=== PATIENT | female | born 1995 | race American Indian/Alaskan Native ===

== ENCOUNTER 2017-08-03 13:14 | Emergency (ER) | payer MEDICAID ==
[2017-08-03 14:01] LABS: Basophils % (Auto) 0.6 % (0.0-1.8); Eosinophils % (Auto) 1.4 % (0.0-4.3); Hematocrit 31.3 % (30.3-42.9); Hemoglobin 9.9 gm/dl (10.1-14.3); Mean Corpuscular HGB Conc 32 % (30-34); Mean Corpuscular Hemoglobin 27 pg (28-32); Mean Corpuscular Volume 84 fl (79-97); Platelet Count 328 K/mm3 (140-440); Red Blood Count 3.74 M/mm3 (3.65-5.03); Red Cell Distribution Width 18.5 % (13.2-15.2); White Blood Count 6.5 K/mm3 (4.5-11.0)
[2017-08-03 15:38] LABS: Bacteria,Urine 1+ /HPF (Negative); Bilirubin,Urine NEG (Negative); Blood,Urine NEG (Negative); Ketones,Urine NEG (Negative); Leukocyte Esterase,Urine NEG (Negative); Nitrite,Urine NEG (Negative); Protein,Urine <15 mg/dL mg/dL (Negative); Urobilinogen,Urine < 2.0 mg/dL (<2.0)
--- NOTE | 2017-08-03 17:33 | Ultrasound Report ---
FINAL REPORT EXAM: US OB \T\lt; = 14 WEEKS FETUS HISTORY: vaginal bleeding . LMP 06/11/2017 with estimated age 7 weeks 4 days and EDC 03/18/2018[place] [address] TECHNIQUE: Ultrasound of the pelvis using transabdominal and transvaginal imaging PRIORS: None. FINDINGS: Uterus: Uterus is enlarged in size and normal and homogeneous in echogenicity without focal fibroid formation. The uterus measures 11.0 x 6.5 x 7.7 cm in size. There is a single early viable intrauterine gestation noted. Intrauterine gestation: There is a single intrauterine gestation identified with both a pole and yolk sac. heart rate is monitored at 146 BPM using M-mode doppler. [place]-rump length measurement of 1.1 cm corresponds to estimated age 7 weeks 2 days with EDC 03/20/2018. There is a small to moderate subchorionic hemorrhage along the caudal portion of the gestational sac measuring 1.5 x 0.8 x 1.8 cm. Ovaries: Both ovaries appear prominent in size and normal in echogenicity with normal blood flow bilaterally. The right ovary measures 3.7 x 2.1 x 2.3 cm and the left ovary measures 3.7 x 2.3 x 3.9 cm in size. In the right ovary, there is a hypoechoic avascular complex cystic focus measuring 2.7 cm, likely the corpus luteum. Other: There is no evidence for solid adnexal mass is seen. There is no free fluid in the cul-de-sac. IMPRESSION: Single intrauterine viable with an approximate age of 7 weeks 2 days. Small moderate subchorionic hemorrhage noted along the caudal portion of the gestational sac.
--- NOTE | 2017-08-03 17:33 | Ultrasound Report ---
FINAL REPORT EXAM: US OB TRANSVAGINAL HISTORY: vaginal bleeding . LMP 06/11/2017 with estimated age 7 weeks 4 days and EDC 03/18/2018[place] [address] TECHNIQUE: Ultrasound of the pelvis using transabdominal and transvaginal imaging PRIORS: None. FINDINGS: Uterus: Uterus is enlarged in size and normal and homogeneous in echogenicity without focal fibroid formation. The uterus measures 11.0 x 6.5 x 7.7 cm in size. There is a single early viable intrauterine gestation noted. Intrauterine gestation: There is a single intrauterine gestation identified with both a pole and yolk sac. heart rate is monitored at 146 BPM using M-mode doppler. [place]-rump length measurement of 1.1 cm corresponds to estimated age 7 weeks 2 days with EDC 03/20/2018. There is a small to moderate subchorionic hemorrhage along the caudal portion of the gestational sac measuring 1.5 x 0.8 x 1.8 cm. Ovaries: Both ovaries appear prominent in size and normal in echogenicity with normal blood flow bilaterally. The right ovary measures 3.7 x 2.1 x 2.3 cm and the left ovary measures 3.7 x 2.3 x 3.9 cm in size. In the right ovary, there is a hypoechoic avascular complex cystic focus measuring 2.7 cm, likely the corpus luteum. Other: There is no evidence for solid adnexal mass is seen. There is no free fluid in the cul-de-sac. IMPRESSION: Single intrauterine viable with an approximate age of 7 weeks 2 days. Small moderate subchorionic hemorrhage noted along the caudal portion of the gestational sac.
[2017-08-03] MEDS ORDERED: TYLENOL PO ONE (17:41)
--- NOTE | 2017-08-03 17:51 | Emergency Department Report ---
HPI - General Chief Complaint: Vaginal Bleeding Time Seen by Provider: 08/03/17 17:32 - HPI HPI: This is a 22-year-old -[place] female presents to the emergency department from home with complaint of some lower abdominal and/or pelvic cramping and some vaginal bleeding that started last night, all while . The patient believes she is about 7 weeks' as she had a home test was positive, a last menstrual cycle about June 11, and the was confirmed at [facility] by urine test. She has not taken anything for her symptoms prior to presentation. With this she is . No recent travel or sick contacts at home. She denies any fever, vaginal discharge, dysuria, nausea, vomiting. ED Past Medical Hx - Past Medical History Hx Hypertension: No Hx Congestive Heart Failure: No Hx Diabetes: No Hx Deep Vein Thrombosis: No Hx Renal Disease: No Hx Sickle Cell Disease: No Hx Seizures: No Hx Asthma: No Hx COPD: No Hx HIV: No - Surgical History Hx Cholecystectomy: Yes - Social History Smoking Status: Never Smoker Substance Use Type: None - Medications Home Medications: Home Medications Medication Instructions Recorded Confirmed Last Taken Type Fluticasone [Flonase] 2 spray NS QDAY #2 bottle 10/23/15 Unknown Rx Loratadine [Claritin] 10 mg PO DAILY #30 tablet 10/23/15 Unknown Rx Prednisone [predniSONE 10 mg 10 mg PO .TAPER #1 tab.ds.pk 10/23/15 Unknown Rx (6-Day Pack, 21 Tabs)] Sulfamethoxazole/Trimethoprim 1 each PO BID #20 tablet 10/23/15 Unknown Rx [Bactrim DS TAB] ED Review of Systems ROS: Stated complaint: CRAMPS/VAGINAL BLEEDING Other details as noted in HPI Comment: All other systems reviewed and negative Constitutional: denies: chills, fever Eyes: denies: eye pain, eye discharge, vision change ENT: denies: ear pain, throat pain Respiratory: denies: cough, shortness of breath, wheezing Cardiovascular: denies: chest pain, palpitations Genitourinary: other (vaginal bleeding). denies: dysuria Musculoskeletal: denies: back pain, joint swelling, arthralgia Skin: denies: rash, lesions Neurological: denies: headache, weakness, paresthesias Physical Exam - Physical Exam Vital Signs: Vital Signs 08/03/17 13:24 Temperature 98 F Pulse Rate 74 Respiratory 20 Rate Blood Pressure 120/63 O2 Sat by Pulse 100 Oximetry Physical Exam: GENERAL: The patient is well-developed well-nourished. HENT: Normocephalic. Atraumatic. Patient has moist mucous membranes. EYES: Extraocular motions are intact. Pupils equal reactive to light bilaterally. NECK: Supple. Trachea is midline. CHEST/LUNGS: Clear to auscultation. There is no respiratory distress noted. HEART/CARDIOVASCULAR: Regular. There is no tachycardia. ABDOMEN: Abdomen is soft, nontender. No guarding or rebound tenderness. Patient has normal bowel sounds. There is no abdominal distention. SKIN: There is no rash. There is no edema. There is no diaphoresis. NEURO: The patient is awake, alert, and oriented. The patient is cooperative. The patient has no focal neurologic deficits. The patient has normal speech. MUSCULOSKELETAL: There is no tenderness or deformity. There is no limitation range of motion. There is no evidence of acute injury. ED Course Vital Signs 08/03/17 13:24 Temperature 98 F Pulse Rate 74 Respiratory 20 Rate Blood Pressure 120/63 O2 Sat by Pulse 100 Oximetry ED Medical Decision Making - Lab Data Result diagrams: 08/03/17 13:40 - Radiology Data Radiology results: report reviewed EXAM: US OB TRANSVAGINAL HISTORY: vaginal bleeding . LMP 06/11/2017 with estimated age 7 weeks 4 days and EDC 03/18/2018. [place] [address] TECHNIQUE: Ultrasound of the pelvis using transabdominal and transvaginal imaging PRIORS: None. FINDINGS: Uterus: Uterus is enlarged in size and normal and homogeneous in echogenicity without focal fibroid formation. The uterus measures 11.0 x 6.5 x 7.7 cm in size. There is a single early viable intrauterine gestation noted. Intrauterine gestation: There is a single intrauterine gestation identified with both a pole and yolk sac. heart rate is monitored at 146 BPM using M-mode doppler. [place]-rump length measurement of 1.1 cm corresponds to estimated age 7 weeks 2 days with EDC 03/20/2018. There is a small to moderate subchorionic hemorrhage along the caudal portion of the gestational sac measuring 1.5 x 0.8 x 1.8 cm. Ovaries: Both ovaries appear prominent in size and normal in echogenicity with normal blood flow bilaterally. The right ovary measures 3.7 x 2.1 x 2.3 cm and the left ovary measures 3.7 x 2.3 x 3.9 cm in size. In the right ovary, there is a hypoechoic avascular complex cystic focus measuring 2.7 cm, likely the corpus luteum. Other: There is no evidence for solid adnexal mass is seen. There is no free fluid in the cul-de-sac. IMPRESSION: Single intrauterine viable with an approximate age of 7 weeks 2 days. Small moderate subchorionic hemorrhage noted along the caudal portion of the gestational sac. Transcribed By: [facility] Dictated By: NBA NAVARRO MD Electronically Authenticated By: NBA NAVARRO MD Signed Date/Time: 08/03/17 0301 - Medical Decision Making 22-year-old female presents with some vaginal bleeding while that started last night. It is a mild amount of bleeding. Her labs are mostly unremarkable including no significant anemia. Leukocytosis or signs of infection in the blood or urine. She has a beta hCG of 13,800. Ultrasound shows a live intrauterine at 7 weeks and 1 day. With the bleeding, she will get the diagnosis of a threatened miscarriage. She is artery on vitamins and will use Tylenol for discomfort and has good follow-up with [facility] at [facility]. She will return to the ER with any worsening of her symptoms or any acute distress. Discharge instructions given in the emergency department and all questions answered. - Differential Diagnosis , threatened miscarriage, spontaneous miscarriage, fibroids Critical Care Time: No Critical care attestation.: If time is entered above; I have spent that time in minutes in the direct care of this critically ill patient, excluding procedure time. ED Disposition Clinical Impression: Threatened miscarriage Qualifiers: Weeks of gestation: less than 8 weeks Qualified Code(s): Z3A.01 - Less than 8 weeks gestation of Disposition: DC-01 TO HOME OR SELFCARE Is pt being admited?: No Condition: Good Instructions: (ED), Threatened Miscarriage (ED) Additional Instructions: Please follow up with [facility] in the next few days. Return to the emergency Department with any worsening of the vaginal bleeding or abdominal pain, or any acute distress. You should have pelvic rest meaning that there should be nothing inserted within the vagina, no sexual intercourse. You should also avoid any heavy lifting of anything greater than 5-10 pounds. He can take Tylenol every 4 hours, using weight-based dosing, as needed for discomfort. Continue with your vitamins. Referrals: [facility] [Provider Group] - 3-5 Days Time of Disposition: 17:52
[2017-08-03 18:14] VITALS: BP 120/71
== END 2017-08-03 18:14 | disposition home or self-care (01) ==
LOC: ED 13:14
DX: O20.0 Threatened abortion (principal); Z3A.01 Less than 8 weeks gestation of pregnancy
CPT/HCPCS: 36415; 76801; 76817; 81001; 84702; 85025; 86850; 86900; 86901

== ENCOUNTER 2018-01-27 19:28 | Outpatient (CLI) | payer MEDICAID ==
[2018-01-27 19:45] VITALS: BP 111/59
[2018-01-27 21:23] LABS: Bilirubin,Urine NEG (Negative); Blood,Urine NEG (Negative); Color,Urine Straw (Yellow); Protein,Urine <15 mg/dL mg/dL (Negative); RBC,Urine < 1.0 /HPF (0.0-6.0); Urobilinogen,Urine < 2.0 mg/dL (<2.0)
[2018-01-27 21:26] LABS: WBC,Urine < 1.0 /HPF (0.0-6.0)
== END 2018-01-27 22:30 | disposition home or self-care (01) ==
LOC: TRG 19:28
PROVIDERS: ATTEND Obstetrics & Gynecology
DX: O47.03 False labor before 37 completed weeks of gestation, third trimester (principal); Z3A.32 32 weeks gestation of pregnancy
CPT/HCPCS: 59025; 81001

== ENCOUNTER 2018-02-03 12:29 | Outpatient (CLI) | payer MEDICAID ==
[2018-02-03] MEDS ORDERED: MORPHINE IM ONE ×2 (13:04→14:30)
[2018-02-03 13:06] VITALS: BP 120/82
[2018-02-03] MEDS ORDERED: PHENERGAN PO ONE (13:06)
[2018-02-03] MEDS ORDERED: LACTATED RINGERS 500 ML IV ONE (13:55)
[2018-02-03] MEDS ORDERED: BRETHINE SUB-Q ONE (14:14)
[2018-02-03] MEDS ORDERED: BRETHINE ONE (14:14)
== END 2018-02-03 14:50 | disposition home or self-care (01) ==
LOC: TRG 12:29
PROVIDERS: ATTEND Obstetrics & Gynecology
DX: O47.03 False labor before 37 completed weeks of gestation, third trimester (principal); Z3A.33 33 weeks gestation of pregnancy
CPT/HCPCS: 59025; 96360; 96361; 96372; J2270; J3105; J7120; Q0169

== ENCOUNTER 2018-03-07 18:04 | Outpatient (CLI) | payer MEDICAID ==
[2018-03-07 19:22] VITALS: BP 111/56
--- NOTE | 2018-03-07 19:41 | Ultrasound Report ---
FINAL REPORT PROCEDURE: OB US LIMITED FETUS(S) TECHNIQUE: Real-time limited sonographic examination was performed for evaluation of well-being for each fetus with image documentation (1 or more fetuses). CPT 74857 HISTORY: labor COMPARISON: No prior studies are available for comparison. FINDINGS: There is a single living intrauterine gestation visualized in the vertex presentation with a heart rate of 158 beats per minute. Subjectively the amount of amniotic fluid appears decreased. The amniotic fluid index is low normal measuring 7.5 centimeters. Placenta is located anterior and is grade 2. No abruption is seen. The internal cervical os was not visualized. Further evaluation was neither requested nor performed. Detailed exam of the anatomy was not performed. measurements were not obtained. IMPRESSION: Single living intrauterine gestation visualized currently vertex presentation. Subjectively the amount of amniotic fluid appears decreased. Amniotic fluid index low normal measuring 7.5 centimeter. Consider follow-up exam. Further evaluation was neither requested nor performed.
--- NOTE | 2018-03-07 19:44 | Ultrasound Report ---
FINAL REPORT PROCEDURE: US OB BPP WO NON-STRESS TECHNIQUE: Sonographic evaluation for breathing, movement, tone, and amniotic fluid volume was performed. CPT 53963 HISTORY: [facility] IN OFFICE, WELL BEING COMPARISON: No prior studies are available for comparison. FINDINGS: Single living intrauterine gestation visualized currently vertex presentation with a heart rate of 158 beats per minute. A score of 2 was given for breathing, 2 for movement, 2 for tone and 2 for amniotic fluid volume. Total biophysical profile score 8/8. Further evaluation was neither requested nor performed. IMPRESSION: Biophysical profile score 8/8. Single living intrauterine gestation currently visualized vertex presentation.
== END 2018-03-07 20:04 | disposition home or self-care (01) ==
LOC: TRG 18:04
PROVIDERS: ATTEND Obstetrics & Gynecology
DX: O47.1 False labor at or after 37 completed weeks of gestation (principal); Z3A.38 38 weeks gestation of pregnancy
CPT/HCPCS: 59025; 76815; 76819